=== PATIENT | male | born 1960 | race Caucasian/White ===

== ENCOUNTER 2018-10-20 05:56 | Day surgery (SDC) | payer OTHER ==
[2018-10-20] MEDS ORDERED: GLYCOPYRROLATE 0.4 MG INJ (07:00)
[2018-10-20] MEDS ORDERED: PROPOFOL 40 ML (07:29)
[2018-10-20] MEDS ORDERED: LIDOCAINE 100 MG SYRINGE (07:29)
== END 2018-10-20 11:31 | disposition home or self-care (01) ==
LOC: GIL 05:56
DX: Z12.11 Encounter for screening for malignant neoplasm of colon (principal); K64.8 Other hemorrhoids; K57.30 Diverticulosis of large intestine without perforation or abscess without bleeding; Z86.010 Personal history of colon polyps; I10 Essential (primary) hypertension; E03.9 Hypothyroidism, unspecified; E78.5 Hyperlipidemia, unspecified; J45.909 Unspecified asthma, uncomplicated
CPT/HCPCS: 45378